=== PATIENT | female | born 1985 | race Caucasian/White ===

== ENCOUNTER 2019-05-24 07:11 | Emergency (ER) | payer BC, MEDICAID ==
[~2019-05-24] VITALS: Ht 160 cm; Wt 78.5 kg
[2019-05-24 07:16] VITALS: BP 197/137
--- NOTE | 2019-05-24 07:37 | NUR ---
AAO X4 PT BIB FAMILY W C/O RT FLANK PAIN RADIATING TO THE BACK 1 HR [employer]. DENIES HX OR NVD. PT PAIN IS 10/10 CRYING AND GUARDING. UNABLE TO PROVIDE URINE AT THIS TIME
[2019-05-24] MEDS ORDERED: MORPHINE SULFATE 4 MG/ML SYR IVP ONE ×3 (07:40→12:35)
[2019-05-24] MEDS ORDERED: NACL 0.9% 1,000 ML IV ONE (07:40)
[2019-05-24 07:54] LABS: BASOPHILS % (AUTO) 0.5 % (0.0-2.0); EOSINOPHILS # (AUTO) 0.1 K/uL (0-0.4); HEMATOCRIT 41.2 % (36-48); HEMOGLOBIN 13.7 g/dL (12.0-16.0); LYMPHOCYTES # (AUTO) 2.3 K/uL (2.5-16.5); LYMPHOCYTES % (AUTO) 26.4 % (20.5-51.1); MEAN CORPUSCULAR HEMOGLOBIN 28 pg (27-31); MEAN CORPUSCULAR HGB CONC 33 g/dL (33-37); MEAN CORPUSCULAR VOLUME 84.9 fL (80-94); MONOCYTES # (AUTO) 0.6 K/uL (0.8-1.0); MONOCYTES % (AUTO) 6.6 % (1.7-9.3); NEUTROPHILS # (AUTO) 5.8 K/uL (1.8-7.7); NEUTROPHILS % (AUTO) 65.5 % (42.2-75.2); PLATELET COUNT (AUTO) 361 K/uL (140-450); RED BLOOD CELL COUNT(AUTO) 4.85 MIL/uL (4.20-5.40); RED CELL DISTRIBUTION WIDTH 13.5 % (11.6-13.7); WHITE BLOOD COUNT (AUTO) 8.9 K/uL (4.8-10.8)
[2019-05-24] MEDS ORDERED: ONDANSETRON 4 MG/2 ML VIAL ONE (07:54)
[2019-05-24] MEDS ORDERED: ONDANSETRON 4 MG/2 ML VIAL IVP ONE (07:55)
[2019-05-24] MEDS ORDERED: KETOROLAC 15 MG/ML VIAL IVP ONE ×2 (08:05→09:10)
[2019-05-24 08:19] LABS: ALBUMIN 4.2 g/dL (3.4-5.0); ANION GAP 14.3 (8-16); CARBON DIOXIDE 27.1 mmol/L (21-32); CREATININE 0.8 mg/dL (0.6-1.3); POTASSIUM 4.4 mmol/L (3.5-5.1); TOTAL BILIRUBIN 0.5 mg/dL (0.0-1.0)
--- NOTE | 2019-05-24 08:46 | NUR ---
PER PT PAIN HAS ABDOMINAL PAIN HAS DECREASE TO 3/10 FROM 05/16. DENIES NAUSEA OR VOMITING AT THIS TIME
--- NOTE | 2019-05-24 10:37 | NUR ---
pt taken off the unit via wheel chair for ct abd/pelvis
--- NOTE | 2019-05-24 10:41 | NUR ---
pt brought back from ct scan via wheel chair will continue to monitor
--- NOTE | 2019-05-24 11:59 | NUR ---
Upon discharging patient, pt states she wants pain medication prior to discharge. Dr. Iqbal made aware.
[2019-05-24] MEDS ORDERED: HYDROcodone/APAP 5/325 MG 1 TAB TAB PO ONE (12:00)
--- NOTE | 2019-05-24 13:03 | NUR ---
PT GIVEN D/C PAPERS, PT ACTIVELY VOMITING, NOT FEELING WELL, MD/CHARGE NURSE MADE AWARE
--- NOTE | 2019-05-24 14:00 | NUR ---
PT WAITING TO TALK TO
[2019-05-24 15:24] VITALS: BP 121/66
--- NOTE | 2019-05-24 15:24 | NUR ---
Patient discharged with v/s stable. Written and verbal after care instructions given and explained. Patient alert, oriented and verbalized understanding of instructions. Ambulatory with steady gait. All questions addressed prior to discharge. ID band removed. Patient advised to follow up with PMD. Rx of [place], Motrin given. Patient educated on indication of medication including possible reaction and side effects. Opportunity to ask questions provided and answered.
== END 2019-05-24 15:24 | disposition home or self-care (01) ==
LOC: MED 07:11
DX: N20.1 Calculus of ureter (principal); Z88.8 Allergy status to other drugs, medicaments and biological substances
CPT/HCPCS: 36415; 74176; 76830; 76856; 80053; 81002; 81025; 85025; 93005; 93976; 96374; 96375; 96376; 99284; J1885; J2270; J2405; J7030; Q0092